=== PATIENT | male | born 1970 ===

== ENCOUNTER 2018-06-10 14:28 | Emergency (ER) | payer BC ==
--- NOTE | 2018-06-10 16:38 | ER ---
Nurse's Notes [facility] Name: Mumtaz Guzman Age: 47 yrs Sex: Male : 1970 Arrival Date: 06/10/2018 Time: 14:30 Bed 9 Private MD: Out, [facility] Diagnosis: Acute upper respiratory infection, unspecified Presentation: 06/10 15:01 Presenting complaint: Patient states: Headache,chills, body aches, nonproductive cough, hb and sore throat since yesterday. Transition of care: patient was not received from another setting of care. Onset of symptoms was June 09, 2018. Risk Assessment: Do you want to hurt yourself or someone else? Patient reports no desire to harm self or others. Initial Sepsis Screen: Does the patient meet any 2 criteria? No. Patient's initial sepsis screen is negative. Does the patient have a suspected source of infection? No. Patient's initial sepsis screen is negative. Care prior to arrival: None. 15:01 Method Of Arrival: Ambulatory hb 15:01 Acuity: COMFORT 4 hb Historical: - Allergies: 15:02 Aspirin; hb 15:02 chloraquin; hb - Immunization history:: Adult Immunizations up to date. - Social history:: Smoking status: Patient/guardian denies using tobacco. - Ebola Screening: : No symptoms or risks identified at this time. Screenin:25 Abuse screen: Denies threats or abuse. Denies injuries from another. Nutritional rv screening: No deficits noted. Tuberculosis screening: No symptoms or risk factors identified. Fall Risk None identified. Assessment: 15:24 General: Appears in no apparent distress. comfortable, Behavior is calm, cooperative. rv Pain: Denies pain. Neuro: Level of Consciousness is awake, alert, obeys commands, Oriented to person, place, time, situation. Cardiovascular: Heart tones S1 S2 present. Respiratory: Airway is patent. GI: No signs and/or symptoms were reported involving the gastrointestinal system. : No signs and/or symptoms were reported regarding the genitourinary system. EENT: No signs and/or symptoms were reported regarding the EENT system. Derm: Skin is intact. Vital Signs: 15:02 BP 142 / 97; Pulse 83; Resp 16; Temp 98.9(TE); Pulse Ox 100% on R/A; Weight 90.72 kg; hb Height 6 ft. (182.88 cm); Pain 5/10; 15:26 Temp 97.8(O); rv 16:29 BP 136 / 94; rv 15:02 Body Mass Index 27.12 (90.72 kg, 182.88 cm) hb ED Course: 14:30 Patient arrived in ED. sb2 14:31 Out, of [facility] is Private Physician. sb2 15:02 Triage completed. hb 15:02 Arm band placed on right wrist. hb 15:25 Patient has correct armband on for positive identification. Bed in low position. Call rv light in reach. NIBP on. 15:32 Eriberto Tucker NP is PHCP. pm1 15:32 Julio Clayton MD is Attending Physician. pm1 16:55 No provider procedures requiring assistance completed. Patient did not have IV access rv during this emergency room visit. Administered Medications: No medications were administered Outcome: 16:37 Discharge ordered by MD. pm1 16:55 Discharged to home ambulatory. rv 16:55 Condition: good 16:55 Discharge instructions given to patient, Instructed on discharge instructions, medication usage. 16:56 Patient left the ED. rv Signatures: Eriberto Tucker NP ONLINE JOURNALIST pm1 Yesenia Narvaez RN RN Shahana Vences sb2 Rashid Quintero, RN RN rv
--- NOTE | 2018-06-10 16:38 | EDPHYS ---
Physician Documentation [facility] Name: Mumtaz Guzman Age: 47 yrs Sex: Male : 1970 Arrival Date: 06/10/2018 Time: 14:30 Bed 9 Private MD: Out, [facility] ED Physician Julio Clayton HPI: 06/10 16:00 This 47 yrs old Male presents to ER via Ambulatory with complaints of Flu Symptoms. pm1 16:00 The patient or guardian reports cough, with no sputum, sore throat. Onset: The pm1 symptoms/episode began/occurred last night. Modifying factors: The symptoms are alleviated by nothing, the symptoms are aggravated by nothing. Associated signs and symptoms: Pertinent positives: headache, sore throat, subjective fever, dry cough, Pertinent negatives: chest pain, diarrhea, ear ache, nausea, rhinorrhea, vomiting. The patient has not recently seen a physician. Historical: - Allergies: 15:02 Aspirin; hb 15:02 chloraquin; hb - Immunization history:: Adult Immunizations up to date. - Social history:: Smoking status: Patient/guardian denies using tobacco. - Ebola Screening: : No symptoms or risks identified at this time. ROS: 16:00 Eyes: Negative for injury, pain, redness, and discharge. pm1 16:00 Neck: Negative for injury, pain, and swelling, Cardiovascular: Negative for chest pain, palpitations, and edema. 16:00 Abdomen/GI: Negative for abdominal pain, nausea, vomiting, diarrhea, and constipation, Back: Negative for injury and pain, : Negative for injury, bleeding, discharge, and swelling, MS/Extremity: Negative for injury and deformity, Skin: Negative for injury, rash, and discoloration, Neuro: Negative for headache, weakness, numbness, tingling, and seizure. 16:00 Constitutional: Positive for body aches, chills, Negative for poor PO intake. 16:00 ENT: Positive for sore throat, Negative for ear pain, rhinorrhea, sinus congestion, sinus pain, difficulty swallowing, difficulty handling secretions, hoarseness. 16:00 Respiratory: Positive for cough, Negative for shortness of breath, sputum production, wheezing. Exam: 16:00 Constitutional: This is a well developed, well nourished patient who is awake, alert, pm1 and in no acute distress. Head/Face: Normocephalic, atraumatic. Eyes: Pupils equal round and reactive to light, extra-ocular motions intact. Lids and lashes normal. Conjunctiva and sclera are non-icteric and not injected. Cornea within normal limits. Periorbital areas with no swelling, redness, or edema. Neck: Trachea midline, no thyromegaly or masses palpated, and no cervical lymphadenopathy. Supple, full range of motion without nuchal rigidity, or vertebral point tenderness. No Meningismus. Chest/axilla: Normal chest wall appearance and motion. Nontender with no deformity. No lesions are appreciated. Cardiovascular: Regular rate and rhythm with a normal S1 and S2. No gallops, murmurs, or rubs. Normal PMI, no JVD. No pulse deficits. Respiratory: Lungs have equal breath sounds bilaterally, clear to auscultation and percussion. No rales, rhonchi or wheezes noted. No increased work of breathing, no retractions or nasal flaring. 16:00 Abdomen/GI: Soft, non-tender, with normal bowel sounds. No distension or tympany. No guarding or rebound. No evidence of tenderness throughout. Back: No spinal tenderness. No costovertebral tenderness. Full range of motion. Skin: Warm, dry with normal turgor. Normal color with no rashes, no lesions, and no evidence of cellulitis. MS/ Extremity: Pulses equal, no cyanosis. Neurovascular intact. Full, normal range of motion. 16:00 ENT: External ear(s): are unremarkable, Ear canal(s): are normal, TM's: are normal, Nose: is normal, Mouth: is normal, Posterior pharynx: Airway: normal, no evidence of obstruction, patent, Tonsils: are normal in appearance, erythema, that is mild, peritonsillar mass, is not appreciated. 16:00 Neuro: Orientation: is normal, Motor: moves all fours. Vital Signs: 15:02 BP 142 / 97; Pulse 83; Resp 16; Temp 98.9(TE); Pulse Ox 100% on R/A; Weight 90.72 kg; hb Height 6 ft. (182.88 cm); Pain 5/10; 15:26 Temp 97.8(O); rv 16:29 BP 136 / 94; rv 15:02 Body Mass Index 27.12 (90.72 kg, 182.88 cm) MDM: 15:32 Patient medically screened. pm1 16:33 Data reviewed: vital signs. Data interpreted: Pulse oximetry: on room air is 100 %. pm1 Interpretation: normal. Counseling: I had a detailed discussion with the patient and/or guardian regarding: the historical points, exam findings, and any diagnostic results supporting the discharge/admit diagnosis, lab results, the need for outpatient follow up, to return to the emergency department if symptoms worsen or persist or if there are any questions or concerns that arise at home. 06/10 15:48 Order name: Flu; Complete Time: 16:33 pm1 06/10 15:48 Order name: Strep; Complete Time: 16:33 pm1 06/10 16:33 Order name: Throat Culture EDNY Administered Medications: No medications were administered Disposition: 06/11 09:45 Co-signature as Attending Physician, Julio Clayton MD I agree with the assessment and larissa plan of care. Disposition: 06/10/18 16:37 Discharged to Home. Impression: Acute upper respiratory infection, unspecified. - Condition is Stable. - Discharge Instructions: Pharyngitis, Viral Respiratory Infection. - Work release form, Medication Reconciliation Form, Thank You Letter, Antibiotic Education form. - Follow up: Emergency Department; When: As needed; Reason: Worsening of condition. Follow up: Private Physician; When: 2 - 3 days; Reason: Recheck today's complaints, Continuance of care, Re-evaluation by your physician. - Problem is new. - Symptoms have improved. Signatures: Dispatcher [employer] EDNY Julio Clayton MD MD cha Marinas, Patrick, [employer] pm1 Yesenia Narvaez, JUAN CARLOS RN Rashid Quintero RN RN rv Corrections: (The following items were deleted from the chart) 06/10 16:38 16:37 06/10/2018 16:37 Discharged to Home. Impression: Acute pharyngitis. Condition is pm1 Stable. Forms are Medication Reconciliation Form, Thank You Letter, Antibiotic Education, Prescription Opioid Use. Follow up: Emergency Department; When: As needed; Reason: Worsening of condition. Follow up: Private Physician; When: 2 - 3 days; Reason: Recheck today's complaints, Continuance of care, Re-evaluation by your physician. Problem is new. Symptoms have improved. pm1 16:56 16:38 06/10/2018 16:37 Discharged to Home. Impression: Acute upper respiratory rv infection, unspecified. Condition is Stable. Discharge Instructions: Pharyngitis, Viral Respiratory Infection. Forms are Medication Reconciliation Form, Thank You Letter, Antibiotic Education, Prescription Opioid Use. Follow up: Emergency Department; When: As needed; Reason: Worsening of condition. Follow up: Private Physician; When: 2 - 3 days; Reason: Recheck today's complaints, Continuance of care, Re-evaluation by your physician. Problem is new. Symptoms have improved. pm1
== END 2018-06-10 16:56 | disposition home or self-care (01) ==
LOC: ER 14:28
DX: J06.9 Acute upper respiratory infection, unspecified (principal); Z88.6 Allergy status to analgesic agent
CPT/HCPCS: 87070; 87081; 87804; 99281

== ENCOUNTER 2019-02-19 19:56 | Emergency (ER) | payer BC | END 2019-02-19 21:39 | disposition left against medical advice (07) | LOC: ER 19:56 | DX: Z53.21 Procedure and treatment not carried out due to patient leaving prior to being seen by health care provider (principal) ==